=== PATIENT | female | born 1980 | race Caucasian/White ===

== ENCOUNTER 2024-02-04 14:46 | Emergency (ER) | payer OTHER ==
[~2024-02-04] VITALS: Ht 152.4 cm; Wt 90.3 kg
[2024-02-04 18:25] VITALS: BP 156/88; PULSE 87; RESP 18; TEMP 97.8; O2SAT 98
== END 2024-02-04 18:25 | disposition home or self-care (01) ==
LOC: ER 14:46
DX: S86.911A Strain of unspecified muscle(s) and tendon(s) at lower leg level, right leg, initial encounter (principal); Z88.6 Allergy status to analgesic agent; Z88.1 Allergy status to other antibiotic agents; X58.XXXA Exposure to other specified factors, initial encounter; Y93.01 Activity, walking, marching and hiking; Y92.89 Other specified places as the place of occurrence of the external cause; Y99.8 Other external cause status
CPT/HCPCS: 93971